=== PATIENT | male | born 1985 | race American Indian/Alaskan Native ===

== ENCOUNTER 2018-11-17 20:34 | Emergency (ER) | payer SELFPAY ==
[2018-11-17] MEDS ORDERED: CATAPRES PO ONE (21:24)
--- NOTE | 2018-11-17 21:24 | Emergency Department Report ---
Blank Doc - Documentation Documentation: This is a 32-year-old male that presents with headache and uncontrolled HTN. This initial assessment/diagnostic orders/clinical plan/treatment(s) is/are subject to change based on patient's health status, clinical progression and re- assessment by fellow clinical providers in the ED. Further treatment and workup at subsequent clinical providers discretion. Patient/guardians urged not to elope from the ED as their condition may be serious if not clinically assessed and managed. Initial orders include: 1- Patient sent to [facility] for further evaluation and treatment 2- ct head 3- labs 4- catapress-RN to repeat vitals
[2018-11-17] MEDS ORDERED: CATAPRES ONE (21:28)
[2018-11-17 21:54] LABS: Basophils # (Auto) 0.1 K/mm3 (0.0-0.1); Basophils % (Auto) 0.9 % (0.0-1.8); Eosinophils # (Auto) 0.1 K/mm3 (0.0-0.4); Eosinophils % (Auto) 1.3 % (0.0-4.3); Hematocrit 49.8 % (35.5-45.6); Hemoglobin 17.6 gm/dl (11.8-15.2); Lymphocytes # (Auto) 2.2 K/mm3 (1.2-5.4); Lymphocytes % (Auto) 22.9 % (13.4-35.0); Mean Corpuscular HGB Conc 35 % (32-34); Mean Corpuscular Volume 93 fl (84-94); Monocytes # (Auto) 0.9 K/mm3 (0.0-0.8); Platelet Count 333 K/mm3 (140-440); Red Blood Count 5.38 M/mm3 (3.65-5.03); Red Cell Distribution Width 13.9 % (13.2-15.2)
[2018-11-17 22:11] LABS: BUN/Creatinine Ratio 8; Blood Urea Nitrogen 9 mg/dL (9-20); Calcium 9.7 mg/dL (8.4-10.2); Hemolysis Index 15
--- NOTE | 2018-11-17 22:25 | Cat Scan Report ---
CT HEAD WITHOUT CONTRAST INDICATION / CLINICAL INFORMATION: headache. TECHNIQUE: All CT scans at this location are performed using CT dose reduction for ALARA by means of automated e xposure control. COMPARISON: None available. FINDINGS: HEMORRHAGE: No evidence of intracranial hemorrhage or extra-axial fluid collection. EXTRA-AXIAL SPACES: Cortical sulci, sylvian fissures and basilar cisterns have an unremarkable appear ance. VENTRICULAR SYSTEM: The ventricular system is of normal size and configuration. CEREBRAL PARENCHYMA: No areas of abnormal brain parenchymal attenuation are identified. There is no i ndication of recent infarction. MIDLINE SHIFT OR HERNIATION: There is no mass effect. CEREBELLUM / BRAINSTEM: Brainstem and cerebellum have an unremarkable appearance. INTRACRANIAL VESSELS: The arterial vessels and dural sinuses are somewhat denser than expected for a noncontrast study. Has the patient received intravascular iodinated contrast elsewhere. ORBITS: visualized portions of the orbits have an unremarkable appearance. SOFT TISSUES of HEAD: No significant abnormality. CALVARIUM: Evaluation of bone windows reveals no abnormalities. PARANASAL SINUSES / MASTOID AIR CELLS: Visualized paranasal sinuses are free from inflammatory mucosa l disease. Mastoid air cells are normally pneumatized. IMPRESSION: 1. Negative head CT without contrast. Signer Name: Wilder Khalil MD Signed: 11/17/2018 10:21 PM Workstation Name: [id number]
[2018-11-17] MEDS ORDERED: ASPIRIN PO ONE (23:23)
[2018-11-17] MEDS ORDERED: ANTIVERT PO ONE (23:23)
--- NOTE | 2018-11-17 23:59 | XRay Report ---
CHEST 2 VIEWS INDICATION / CLINICAL INFORMATION: dizziness. Shortness of breath COMPARISON: None available. FINDINGS: SUPPORT DEVICES: None. HEART / MEDIASTINUM: No significant abnormality. LUNGS / PLEURA: No significant pulmonary or pleural abnormality. No pneumothorax. ADDITIONAL FINDINGS: No significant additional findings. IMPRESSION: 1. No acute findings. Signer Name: Evan Parson MD Signed: 11/17/2018 11:55 PM Workstation Name: [id number]
[2018-11-18] MEDS ORDERED: APRESOLINE PO ONE (02:14)
--- NOTE | 2018-11-18 03:23 | Emergency Department Report ---
ED General Adult HPI - General Chief complaint: High BP Stated complaint: HIGH B/P Time Seen by Provider: 11/17/18 21:22 Source: patient Mode of arrival: Ambulatory Limitations: No Limitations - History of Present Illness Initial comments: Patient is a 32-year-old AA male male with a history of hypertension which is poorly controlled because of noncompliance with medications presents to the ED with complaint of persistently elevated blood pressure for the last 2 days worse in the last 12 hours. Patient states that he checked his blood pressure at work and it was significantly high and at that time started having headache. Patient states that he was released at work to come to the ED for evaluation. Patient denies chest pain, shortness of breath, dizziness, nausea, vomiting, diaphoresis, neck pain, back pain, arm pain, abdominal pain or syncope. -: Gradual, week(s) (2) Location: head Radiation: non-radiation Severity scale (0 -10): 1 Quality: aching, dull Consistency: constant Improves with: none Worsens with: none Associated Symptoms: denies other symptoms, headaches. denies: confusion, chest pain, cough, diaphoresis, fever/chills, loss of appetite, malaise, nausea/vomiting, rash, seizure, shortness of breath, syncope, weakness Treatments Prior to Arrival: none - Related Data Previous Rx's Medication Instructions Recorded Last Taken Type Lisinopril/Hydrochlorothiazide 1 each PO DAILY #30 tablet 11/18/18 Unknown Rx [Zestoretic 20-12.5 mg] amLODIPine [Norvasc] 10 mg PO DAILY #30 tab 11/18/18 Unknown Rx Allergies Allergy/AdvReac Type Severity Reaction Status Date / Time No Known Allergies Allergy Unverified 11/17/18 21:26 ED Review of Systems ROS: Stated complaint: HIGH B/P Other details as noted in HPI Constitutional: denies: chills, fever Eyes: denies: eye pain, eye discharge, vision change ENT: denies: ear pain, throat pain Respiratory: denies: cough, shortness of breath, wheezing Cardiovascular: denies: chest pain, palpitations Endocrine: no symptoms reported Gastrointestinal: denies: abdominal pain, nausea, diarrhea Genitourinary: denies: urgency, dysuria Musculoskeletal: denies: back pain, joint swelling, arthralgia Skin: denies: rash, lesions Neurological: headache. denies: weakness, paresthesias Psychiatric: denies: anxiety, depression Hematological/Lymphatic: denies: easy bleeding, easy bruising ED Past Medical Hx - Past Medical History Previous Medical History?: Yes Hx Hypertension: Yes - Surgical History Past Surgical History?: No - Social History Smoking Status: Current Every Day Smoker Substance Use Type: None - Medications Home Medications: Home Medications Medication Instructions Recorded Confirmed Last Taken Type Lisinopril/Hydrochlorothiazide 1 each PO DAILY #30 tablet 11/18/18 Unknown Rx [Zestoretic 20-12.5 mg] amLODIPine [Norvasc] 10 mg PO DAILY #30 tab 11/18/18 Unknown Rx ED Physical Exam - General Limitations: No Limitations General appearance: alert, in no apparent distress - Head Head exam: Present: atraumatic, normocephalic, normal inspection - Eye Eye exam: Present: normal appearance, PERRL, EOMI - ENT ENT exam: Present: normal exam, normal orophraynx, mucous membranes moist, TM's normal bilaterally, normal external ear exam - Neck Neck exam: Present: normal inspection, full ROM. Absent: tenderness - Respiratory Respiratory exam: Present: normal lung sounds bilaterally. Absent: respiratory distress, wheezes, rales, rhonchi, chest wall tenderness, accessory muscle use, decreased breath sounds - Cardiovascular Cardiovascular Exam: Present: normal rhythm, tachycardia, normal heart sounds. Absent: systolic murmur, diastolic murmur, rubs, gallop - GI/Abdominal GI/Abdominal exam: Present: soft, normal bowel sounds. Absent: tenderness, guarding, rebound, hyperactive bowel sounds, hypoactive bowel sounds, mass - Rectal Rectal exam: Present: deferred - Extremities Exam Extremities exam: Present: normal inspection, full ROM, normal capillary refill - Back Exam Back exam: Present: normal inspection, full ROM. Absent: tenderness, CVA tenderness (R), CVA tenderness (L), muscle spasm, vertebral tenderness - Neurological Exam Neurological exam: Present: alert, oriented X3, CN II-XII intact, normal gait, reflexes normal - Psychiatric Psychiatric exam: Present: normal affect, normal mood - Skin Skin exam: Present: warm, dry, intact, normal color. Absent: rash ED Course Vital Signs 11/17/18 11/17/18 11/18/18 20:45 21:27 02:02 Temperature 99.0 F Pulse Rate 108 H 108 H 80 Respiratory 20 16 Rate Blood Pressure 227/148 227/148 Blood Pressure 171/118 [Left] O2 Sat by Pulse 94 99 Oximetry 11/18/18 11/18/18 11/18/18 02:03 02:33 04:02 Temperature 98 F Pulse Rate 80 80 72 Respiratory 16 16 Rate Blood Pressure 171/118 Blood Pressure 171/118 148/88 [Left] O2 Sat by Pulse 99 99 Oximetry - Reevaluation(s) Reevaluation #1: 11/18/18 03:24 This is a 32-year-old male with a history of hypertension and noncompliance medications presents to the ED with a limited hypertension. In the ED, the patient is alert and oriented 3, hypertensive and tachycardic and is not acute distress. Lab test results were reviewed and are all nonactionable including initial troponin and repeat troponin level. Head CT scan without contrast shows no acute intracranial abnormalities or hemorrhage. Chest x-ray shows no acute cardiopulmonary abnormalities or pneumonitis. Patient was initially treated in triage with clonidine 0.2 mg by mouth 1. Patient was subsequently treated in the ED with hydralazine 25 mg oral tablet. On reevaluation patient's vital signs are stable, blood pressure is significantly improved from the initial reading in triage. Patient was discharged home on prescriptions of lisinopril HCTZ 10- 12.5 mg by mouth daily, amlodipine 10 mg by mouth daily and was advised to follow-up at [facility] to establish care. Patient was advised to return to the ED immediately if symptoms get worse. ED Medical Decision Making - Lab Data Result diagrams: 11/17/18 03:55 11/17/18 21:32 - Radiology Data Radiology results: report reviewed, image reviewed Chest x-ray shows no acute cardiopulmonary abnormalities or pneumonitis. Head CT scan without contrast shows no acute intracranial abnormalities or hemo rrhage - Medical Decision Making This is a 32-year-old male with a history of hypertension and noncompliance medications presents to the ED with a limited hypertension. In the ED, the patient is alert and oriented 3, hypertensive and tachycardic and is not acute distress. Lab test results were reviewed and are all nonactionable including initial troponin and repeat troponin level. Head CT scan without contrast shows no acute intracranial abnormalities or hemorrhage. Chest x-ray shows no acute cardiopulmonary abnormalities or pneumonitis. Patient was initially treated in triage with clonidine 0.2 mg by mouth 1. Patient was subsequently treated in the ED with hydralazine 25 mg oral tablet. On reevaluation patient's vital signs are stable, blood pressure is significantly improved from the initial reading in triage. Patient was discharged home on prescriptions of lisinopril HCTZ 10- 12.5 mg by mouth daily, amlodipine 10 mg by mouth daily and was advised to follow-up at [facility] to establish care. Patient was advised to return to the ED immediately if symptoms get worse. - Differential Diagnosis Uncontrolled hypertension; ACS; CVA Critical care attestation.: If time is entered above; I have spent that time in minutes in the direct care of this critically ill patient, excluding procedure time. ED Disposition Clinical Impression: Uncontrolled stage 2 hypertension Disposition: TO HOME OR SELFCARE Is pt being admited?: No Does the pt Need Aspirin: No Condition: Stable Instructions: Hypertension (ED) Additional Instructions: Take medications with food, drink plenty of fluids and follow-up with the [facility] to establish care and refill her medications. Return to the ED if his symptoms get worse. Prescriptions: amLODIPine [Norvasc] 10 mg PO DAILY #30 tab Lisinopril/Hydrochlorothiazide [Zestoretic 20-12.5 mg] 1 each PO DAILY #30 tablet Referrals: [facility] [Outside] - 3-5 Days Forms: Work/School Release Form(ED) Time of Disposition: 03:19 Print Language: CITIZEN OF [place]
[2018-11-18 04:04] VITALS: BP 148/88
== END 2018-11-18 04:05 | disposition home or self-care (01) ==
LOC: ED 20:34
DX: I10 Essential (primary) hypertension (principal); F17.200 Nicotine dependence, unspecified, uncomplicated
CPT/HCPCS: 36415; 70450; 71046; 80048; 84484; 85025; 93005; 93010